=== PATIENT | male | born 1955 | race Caucasian/White ===

== ENCOUNTER 2023-03-24 22:59 | Emergency (ER) | payer OTHER ==
[~2023-03-24] VITALS: Ht 167.6 cm; Wt 67.1 kg
[~2023-03-24 22:59] MED LIST: CEFADROXIL500 MG PO; HUMALOG MIX 75/23 ML; LANTUS100 U/ML
[2023-03-24] MEDS ORDERED: TOUJEO MAX300 UNIT/1 SQ (23:17)
== END 2023-03-25 01:31 | disposition home or self-care (01) ==
LOC: ER 22:59
DX: J06.9 Acute upper respiratory infection, unspecified (principal)

== ENCOUNTER 2023-03-25 10:29 | Emergency (ER) | payer OTHER ==
[~2023-03-25] VITALS: Ht 167.6 cm; Wt 67.1 kg
[~2023-03-25 10:29] MED LIST changes: +TOUJEO MAX300 UNIT/1 SQ
== END 2023-03-25 14:42 | disposition home or self-care (01) ==
LOC: ER 10:29
DX: S01.02XA Laceration with foreign body of scalp, initial encounter (principal); W18.39XA Other fall on same level, initial encounter; Y93.89 Activity, other specified; Y92.018 Other place in single-family (private) house as the place of occurrence of the external cause

== ENCOUNTER 2023-04-05 10:18 | Emergency (ER) | payer OTHER ==
[~2023-04-05] VITALS: Ht 165.1 cm; Wt 68.0 kg
== END 2023-04-05 11:22 | disposition home or self-care (01) ==
LOC: ER 10:18
DX: S01.82XA Laceration with foreign body of other part of head, initial encounter (principal)

== ENCOUNTER 2023-04-11 10:35 | Emergency (ER) | payer OTHER ==
[~2023-04-11] VITALS: Ht 167.6 cm; Wt 68.0 kg
[2023-04-11] MEDS ORDERED: CHILDREN'S ASPI81 MG PO (10:41)
[2023-04-11] MEDS ORDERED: ATORVASTATIN CA20 MG PO (10:41)
== END 2023-04-11 11:50 | disposition home or self-care (01) ==
LOC: ER 10:35
DX: Z48.02 Encounter for removal of sutures (principal)